=== PATIENT | female | born 1985 | race Two or more races ===

== ENCOUNTER 2017-05-06 19:25 | Emergency (ER) | payer SELFPAY ==
[~2017-05-06] VITALS: Ht 167.6 cm; Wt 113.4 kg
[2017-05-06 20:03] VITALS: BP 150/84
[2017-05-06 20:27] LABS: BILIRUBIN,URINE NEGATIVE (NEG); GLUCOSE,URINE NEGATIVE (NEG); NITRITE,URINE NEGATIVE (NEG); PH,URINE 7.5; PROTEIN,URINE NEGATIVE (NEG-TRACE); UROBILINOGEN,URINE 0.2 mg/dL (0.2 mg/dL)
[2017-05-06 20:33] LABS: BACTERIA,URINE FEW /HPF (0-FEW); RBC,URINE OCC /HPF (0-2); SQUAMOUS EPITHELIAL CELL,UR MOD /LPF; WBC,URINE 0 /HPF (0-4)
[2017-05-06 20:48] LABS: BASO # 0.1 x10^3/uL (0.0-0.2); BASO % 1 % (0-3); EOS % 2 % (0-3); HEMATOCRIT 38.4 % (36.0-47.0); HEMOGLOBIN 12.8 g/dL (12.0-15.5); LYMPH # 4.3 x10^3/uL (1.0-4.8); LYMPH % 37 % (24-48); MEAN CORPUSCULAR HEMOGLOBIN 28 pg (25-35); MEAN CORPUSCULAR HGB CONC 33 g/dL (31-37); MEAN CORPUSCULAR VOLUME 85 fL (79-100); MONO % 6 % (0-9); NEUT % 54 % (31-73); PLATELET COUNT 291 x10^3/uL (140-400); RED BLOOD COUNT 4.55 x10^6/uL (3.50-5.40); RED CELL DISTRIBUTION WIDTH 14.4 % (11.5-14.5); WHITE BLOOD COUNT 11.8 x10^3/uL (4.0-11.0)
[2017-05-06 21:01] LABS: CALCIUM 8.9 mg/dL (8.5-10.1); CREATININE 0.8 mg/dL (0.6-1.0); GFR 83.7
[2017-05-06 21:06] LABS: ALBUMIN 3.4 g/dL (3.4-5.0); ALBUMIN/GLOBULIN RATIO 0.7 (1.0-1.7); TOTAL BILIRUBIN 0.2 mg/dL (0.2-1.0); TOTAL PROTEIN 8.3 g/dL (6.4-8.2)
--- NOTE | 2017-05-06 21:17 | PHYS DOC ---
Past Medical History Past Medical History: No Pertinent History, Diabetes-Type II, Hypertension Past Surgical History: Alcohol Use: None Drug Use: None Adult General Chief Complaint Chief Complaint: ABDOMINAL PAIN HPI HPI 31-year-old female who presents the emergency department who primarily speaks Albanian. Official blue line operations lead used. Patient reports having right-sided upper abdominal pain and right-sided flank pain intermittently that is sharp moderate pain it is nonradiating and without alleviating factors. She has a chronic wound and rash on both of her legs which she has been prescribed a cream. Denies nausea vomiting or chills. She denies fever. Review of systems is negative for nausea vomiting diarrhea or blood in stools. She denies chest pain or shortness of breath. All other review of systems is negative unless otherwise noted in history of present illness. ED course: 31-year-old female presenting with epigastric to right upper quadrant abdominal pain in conjunction with right-sided flank pain. Upon arrival the patient is afebrile with mild tachycardia. Mild elevation in blood pressure. Pertinent physical exam findings show a nontender gallbladder. Mild right CVA tenderness present. No rebound tenderness or guarding. Blood work obtained along with urinalysis and CT the abdomen pelvis. Blood work unremarkable. Urinalysis has blood without signs of infection. CT the abdomen pelvis suggestive of nephrolithiasis. The patient was then discharged home in stable condition to follow up with their primary care physician over the next 2- 3 days. They were to return if their symptoms worsened or if they were concerned for any reason. [id number] discharge instructions and return precautions were given. Patient's questions were answered to their satisfaction. Patient is comfortable plan. Review of Systems Review of Systems SEE ABOVE. Allergies Allergies Allergies Coded Allergies Type Severity Reaction Last Updated Verified No Known Drug Allergies 05/06/17 No Physical Exam Physical Exam SEE ABOVE Constitutional: Well developed, well nourished, no acute distress, non-toxic appearance. HENT: Normocephalic, atraumatic, bilateral external ears normal, oropharynx moist, no oral exudates, nose normal. [] Eyes: PERRLA, EOMI, conjunctiva normal, no discharge. [] Neck: Normal range of motion, no tenderness, supple, no stridor. Cardiovascular:Heart rate regular rhythm, no murmur Lungs & Thorax: Bilateral breath sounds clear to auscultation [] Abdomen: Bowel sounds normal, soft, no tenderness, no masses, no pulsatile masses. Skin: Warm, dry, no erythema, no rash. [] Back: Mild right-sided CVA tenderness. No midline tenderness. Extremities: No tenderness, no cyanosis, no clubbing, ROM intact, no edema. [] Neurologic: Alert and oriented X 3, normal motor function, normal sensory function, no focal deficits noted. Psychologic: Affect normal, judgement normal, mood normal. [] Current Patient Data Vital Signs Vital Signs Date Time Temp Pulse Resp B/P (MAP) Pulse Ox O2 Delivery O2 Flow Rate FiO2 05/06/17 20:03 98.3 96 20 150/84 (106) 97 Room Air 98.3 Lab Values Laboratory Tests Test 05/06/17 20:01 05/06/17 20:17 05/06/17 20:40 Urine Collection Type Unknown Urine Color Yellow Urine Clarity Clear Urine pH 7.5 Urine Specific [place] 1.020 Urine Protein Negative mg/dL (NEG-TRACE) Urine Glucose (UA) Negative mg/dL (NEG) Urine Ketones (Stick) Negative mg/dL (NEG) Urine Blood Moderate (NEG) Urine Nitrite Negative (NEG) Urine Bilirubin Negative (NEG) Urine Urobilinogen Dipstick 0.2 mg/dL (0.2 mg/dL) Urine Leukocyte Esterase Negative (NEG) Urine RBC Occ /HPF (0-2) Urine WBC 0 /HPF (0-4) Urine Squamous Epithelial Cells Mod /LPF Urine Bacteria Few /HPF (0-FEW) POC Urine HCG, Qualitative Hcg negative (Negative) White Blood Count 11.8 x10^3/uL (4.0-11.0) H Red Blood Count 4.55 x10^6/uL (3.50-5.40) Hemoglobin 12.8 g/dL (12.0-15.5) Hematocrit 38.4 % (36.0-47.0) Mean Corpuscular Volume 85 fL (79-100) Mean Corpuscular Hemoglobin 28 pg (25-35) Mean Corpuscular Hemoglobin Concent 33 g/dL (31-37) Red Cell Distribution Width 14.4 % (11.5-14.5) Platelet Count 291 x10^3/uL (140-400) Neutrophils (%) (Auto) 54 % (31-73) Lymphocytes (%) (Auto) 37 % (24-48) Monocytes (%) (Auto) 6 % (0-9) Eosinophils (%) (Auto) 2 % (0-3) Basophils (%) (Auto) 1 % (0-3) Neutrophils # (Auto) 6.3 x10^3uL (1.8-7.7) Lymphocytes # (Auto) 4.3 x10^3/uL (1.0-4.8) Monocytes # (Auto) 0.8 x10^3/uL (0.0-1.1) Eosinophils # (Auto) 0.2 x10^3/uL (0.0-0.7) Basophils # (Auto) 0.1 x10^3/uL (0.0-0.2) Sodium Level 139 mmol/L (136-145) Potassium Level 4.0 mmol/L (3.5-5.1) Chloride Level 104 mmol/L (98-107) Carbon Dioxide Level 26 mmol/L (21-32) Anion Gap 9 (6-14) Blood Urea Nitrogen 16 mg/dL (7-20) Creatinine 0.8 mg/dL (0.6-1.0) Estimated GFR (Cockcroft-Gault) 83.7 BUN/Creatinine Ratio 20 (6-20) Glucose Level 98 mg/dL (70-99) Calcium Level 8.9 mg/dL (8.5-10.1) Total Bilirubin 0.2 mg/dL (0.2-1.0) Aspartate Amino Transferase (AST) 14 U/L (15-37) L Alanine Aminotransferase (ALT) 21 U/L (14-59) Alkaline Phosphatase 60 U/L (46-116) Total Protein 8.3 g/dL (6.4-8.2) H Albumin 3.4 g/dL (3.4-5.0) Albumin/Globulin Ratio 0.7 (1.0-1.7) L Lipase 112 U/L (73-393) Laboratory Tests 05/06/17 20:40 Laboratory Tests 05/06/17 20:40 EKG EKG [] Radiology/Procedures Radiology/Procedures [] Course & Med Decision Making Course & Med Decision Making Pertinent Labs and Imaging studies reviewed. (See chart for details) [] Dragon Disclaimer Dragon Disclaimer This electronic medical record was generated, in whole or in part, using a voice recognition dictation system. Departure Departure Impression: Primary Impression: Right flank pain Additional Impression: Nephrolithiasis Disposition: 01 HOME, SELF-CARE Condition: STABLE Referrals: NO PCP (PCP) Patient Instructions: Flank Pain, [id number], Kidney Stones Additional Instructions: Thank you for allowing us to participate in your care today. Followup with your primary care physician in 3 days if your symptoms do not improve. Call your Primary Doctor tomorrow and inform them of your visit today. If you do not have a primary care provider you can ask for a list of our primary care providers. Return to the emergency department you have any new or concerning findings. This should be evaluated by the primary care physician and any necessary consulting services for continued management within a few days after discharge. Return to emergency room if you have any new or concerning symptoms including but not limited to fever, chills, nausea, vomiting, intractable pain, any new rashes, chest pain, shortness of air, uncontrolled bleeding, difficulty breathing, and/or vision loss. Problem Qualifiers CYNTHIA CHUN MD May 06, 2017 21:17
--- NOTE | 2017-05-06 21:17 | RAD ---
CT scan of the abdomen and pelvis without contrast 05/06/2017 CLINICAL HISTORY: Right flank pain. TECHNIQUE: Unenhanced, contiguous, 2 mm axial sections were obtained through the abdomen and pelvis. FINDINGS: Images from the study are limited due to the patient's very large body habitus. Images through the lung bases demonstrate minimal dependent subsegmental atelectasis bilaterally. The liver parenchyma has a decreased attenuation consistent with mild fatty infiltration. The spleen, pancreas and adrenal glands are within normal limits. A 3 mm nonobstructing calculus is seen involving the midpole of the right kidney. No focal abnormality of the left kidney is seen. There is no evidence of obstruction of either collecting system. The abdominal aorta tapers normally. The gallbladder is slightly contracted. No free fluid or free air is seen within the abdomen. Air and stool is seen throughout the colon. The appendix is well-visualized and is within normal limits. Images through the pelvis demonstrate the urinary bladder to be contracted. No free fluid is seen. Minimal S-shaped curvature of the thoracolumbar spine is seen. Degenerative changes are seen involving the lower thoracic and throughout the lumbar spine. IMPRESSION: 1. 3 mm nonobstructing right renal calculus. No ureteral calculus is seen. There is no evidence of obstruction of either collecting system. 2. No acute abnormality is seen involving the abdomen and pelvis. Electronically signed by: Uri Soares MD (05/06/2017 9:14 PM) [facility]
[2017-05-06] MEDS ORDERED: HYDR-2758 PO (22:15)
[2017-05-06] MEDS ORDERED: ONDA4TAB10 SL (22:15)
== END 2017-05-06 22:24 | disposition home or self-care (01) ==
LOC: ER 19:25
DX: N20.0 Calculus of kidney (principal); E11.9 Type 2 diabetes mellitus without complications; I10 Essential (primary) hypertension
CPT/HCPCS: 36415; 74176; 80053; 81001; 81025; 83690; 85025; 99285-25

== ENCOUNTER 2017-12-10 22:18 | Emergency (ER) | payer OTHER ==
[2017-12-10 23:44] LABS: ADD MAN DIFF? NO
[2017-12-10 23:47] LABS: BASO # 0.1 x10^3/uL (0.0-0.2); BASO % 1 % (0-3); BILIRUBIN,URINE NEGATIVE (NEG); CLARITY,URINE CLEAR; COLOR,URINE YELLOW; EOS # 0.2 x10^3/uL (0.0-0.7); EOS % 3 % (0-3); GLUCOSE,URINE NEGATIVE (NEG); HEMATOCRIT 37.5 % (36.0-47.0); HEMOGLOBIN 12.7 g/dL (12.0-15.5); LYMPH # 3.5 x10^3/uL (1.0-4.8); LYMPH % 42 % (24-48); MEAN CORPUSCULAR HEMOGLOBIN 28 pg (25-35); MEAN CORPUSCULAR HGB CONC 34 g/dL (31-37); MEAN CORPUSCULAR VOLUME 84 fL (79-100); MONO # 0.5 x10^3/uL (0.0-1.1); MONO % 6 % (0-9); NEUT # 4.1 x10^3uL (1.8-7.7); NEUT % 49 % (31-73); NITRITE,URINE NEGATIVE (NEG); PLATELET COUNT 274 x10^3/uL (140-400); PROTEIN,URINE NEGATIVE (NEG-TRACE); RED BLOOD COUNT 4.47 x10^6/uL (3.50-5.40); RED CELL DISTRIBUTION WIDTH 14.4 % (11.5-14.5); WHITE BLOOD COUNT 8.3 x10^3/uL (4.0-11.0)
[2017-12-10 23:54] LABS: ANION GAP 8 (6-14); BACTERIA,URINE MANY /HPF (0-FEW); BLOOD UREA NITROGEN 10 mg/dL (7-20); BUN/CREATININE RATIO 17 (6-20); CALCIUM 8.2 mg/dL (8.5-10.1); CARBON DIOXIDE 27 mmol/L (21-32); CHLORIDE 105 mmol/L (98-107); CREATININE 0.6 mg/dL (0.6-1.0); GFR 115.9; GLUCOSE 131 mg/dL (70-99); POTASSIUM 3.6 mmol/L (3.5-5.1); RBC,URINE RARE /HPF (0-2); SODIUM 140 mmol/L (136-145); SQUAMOUS EPITHELIAL CELL,UR MANY /LPF; WBC,URINE OCC /HPF (0-4)
[2017-12-11] LABS: ALBUMIN 3.2 g/dL (3.4-5.0); ALBUMIN/GLOBULIN RATIO 0.8 (1.0-1.7); ALK PHOS 56 U/L (46-116); ALT (SGPT) 18 U/L (14-59); AST (SGOT) 12 U/L (15-37); LIPASE 125 U/L (73-393); TOTAL BILIRUBIN 0.2 mg/dL (0.2-1.0); TOTAL PROTEIN 7.3 g/dL (6.4-8.2)
[2017-12-11 00:26] LABS: NEG OBC UR NEG; POS OBC UR POS; U PREG PATIENT NEGATIVE (NEG)
[2017-12-11] MEDS: MORPHINE SULFATE 4 MG/ML DISP.SYRIN. IV (01:18)
[2017-12-11] MEDS: KETOROLAC 30 MG/ML INJ. IV (01:59)
== END 2017-12-11 02:03 | disposition home or self-care (01) ==
LOC: ER 12-11 02:03
DX: N20.0 Calculus of kidney (principal); E11.9 Type 2 diabetes mellitus without complications; I10 Essential (primary) hypertension; Z88.2 Allergy status to sulfonamides
CPT/HCPCS: 36415; 74176; 80053; 81001; 81025; 83690; 85025; 87086; 96374; 96375; 99285-25; J1885; J2270

== ENCOUNTER 2018-05-12 11:07 | Emergency (ER) | payer OTHER ==
[~2018-05-12] VITALS: Ht 152.4 cm; Wt 122.5 kg
[~2018-05-12 11:07] MED LIST: HYDR-2761 PO; HYDR-3164 PO; IBUP-1060 PO; ONDA4TAB10 SL; TAMS0.4C97 PO
--- NOTE | 2018-05-12 11:41 | PHYS DOC ---
Past Medical History Past Medical History: No Pertinent History, Diabetes-Type II, Hypertension Past Surgical History: Smoking: Cigarettes (The patient is a nonsmoker.) Alcohol Use: None Drug Use: None Adult General Chief Complaint Chief Complaint: ASTHMA HPI HPI Patient presents to the emergency department for evaluation. She is a 32-year- old female, who states that for the past 5 days, she has had nasal congestion and a cough. She has had fever as well for the past 3 days, but not today. She has not had any vomiting and denies any pain. She is reportedly having shortness of breath. She states that she had asthma as a child but has not had any asthma problems for quite some time. She is not currently treated for asthma. She is, however, treated for hypertension. She states that she is uncertain if she is , as she has missed her menstrual cycle this past month. Review of Systems Review of Systems Constitutional: Denies lethargy or chills [] Eyes: Denies change in visual acuity, redness, or eye pain [] HENT: Reports nasal congestion and sore throat [] Respiratory: Reports cough and shortness of breath. Cough nonproductive[] Cardiovascular: The patient denies any shortness of breath, chest pain, palpitations, or orthopnea [] GI: Denies abdominal pain, nausea, vomiting, bloody stools or diarrhea [] : Denies dysuria or hematuria [] Musculoskeletal: Denies back pain or joint pain [] Integument: Denies rash or skin lesions [] Neurologic: Denies headache, focal weakness or sensory changes [] Endocrine: Denies polyuria or polydipsia [] All other systems were reviewed and found to be within normal limits, except as documented in this note. Current Medications Current Medications Current Medications Medications (Trade) Dose Ordered Sig/Tonia Start Time Stop Time Status Last Admin Dose Admin Albuterol/ Ipratropium (Duoneb) 3 ml 1X ONCE 05/12/18 11:45 05/12/18 11:46 DC 05/12/18 11:58 3 ML Ceftriaxone Sodium 50 ml @ 100 mls/hr 1X ONCE 05/12/18 13:00 05/12/18 13:29 DC 05/12/18 13:59 100 MLS/HR Lorazepam (Ativan) 1 mg 1X ONCE 05/12/18 12:00 05/12/18 12:01 DC 05/12/18 12:06 1 MG Sodium Chloride 1,000 ml @ 1,000 mls/hr Q1H 05/12/18 11:45 05/12/18 12:44 DC 05/12/18 12:06 1,000 MLS/HR Allergies Allergies Allergies Coded Allergies Type Severity Reaction Last Updated Verified vancomycin Allergy Unknown 12/10/17 Yes Physical Exam Physical Exam PHYSICAL EXAM: CONSTITUTIONAL: Well developed, well nourished HEAD: normocephalic, atraumatic EENT: PERRL, EOMI. Conjunctivae normal color, sclerae non-icteric; moist mucous membranes. Nasal congestion is present. There is very mild pharyngeal erythema without any exudate or uvular deviation or tonsillar enlargement. There is no peritonsillar edema. The tympanic membranes are normal bilaterally. NECK: Supple, non-tender; no meningismus. LUNGS: The patient is hyperventilating. Lungs are mostly clear with some transmitted upper airway noise. There is no wheezing, rales, or rhonchi. HEART: Regular rate and rhythm, no murmur CHEST: No deformity; non-tender ABDOMEN: The abdomen is soft, and non-tender, no masses or bruits. EXTREM: Normal ROM; no deformity, no calf tenderness. Normal pulses palpable in all extremities. There is no pedal edema. SKIN: No rash; no diaphoresis NEURO: Alert; normal speech and cognition; CN's grossly intact; strength grossly intact without focal deficit. BACK: No CVA TTP. PSYCHIATRIC: The patient exhibits a moderately anxious affect. Current Patient Data Vital Signs Vital Signs Date Time Temp Pulse Resp B/P (MAP) Pulse Ox O2 Delivery O2 Flow Rate FiO2 05/12/18 11:25 99.8 108 24 154/85 (108) 99 Room Air 99.8 Lab Values Laboratory Tests Test 05/12/18 11:50 05/12/18 12:00 POC Urine HCG, Qualitative Hcg negative (Negative) Influenza Type A Antigen Negative (NEGATIVE) Influenza Type B Antigen Negative (NEGATIVE) Group A Streptococcus Rapid Negative (NEGATIVE) White Blood Count 15.0 x10^3/uL (4.0-11.0) H Red Blood Count 4.56 x10^6/uL (3.50-5.40) Hemoglobin 13.1 g/dL (12.0-15.5) Hematocrit 38.3 % (36.0-47.0) Mean Corpuscular Volume 84 fL (79-100) Mean Corpuscular Hemoglobin 29 pg (25-35) Mean Corpuscular Hemoglobin Concent 34 g/dL (31-37) Red Cell Distribution Width 14.3 % (11.5-14.5) Platelet Count 251 x10^3/uL (140-400) Neutrophils (%) (Auto) 81 % (31-73) H Lymphocytes (%) (Auto) 13 % (24-48) L Monocytes (%) (Auto) 5 % (0-9) Eosinophils (%) (Auto) 1 % (0-3) Basophils (%) (Auto) 1 % (0-3) Neutrophils # (Auto) 12.1 x10^3uL (1.8-7.7) H Lymphocytes # (Auto) 1.9 x10^3/uL (1.0-4.8) Monocytes # (Auto) 0.8 x10^3/uL (0.0-1.1) Eosinophils # (Auto) 0.1 x10^3/uL (0.0-0.7) Basophils # (Auto) 0.1 x10^3/uL (0.0-0.2) O2 Saturation 96 % (92-99) Arterial Blood pH 7.49 (7.35-7.45) H Arterial Blood pCO2 at Patient Temp 29 mmHg (35-46) L Arterial Blood pO2 at Patient Temp 73 mmHg (85-108) L Arterial Blood HCO3 22 mmol/L (21-28) Arterial Blood Base Excess 0 mmol/L (-3-3) Oxyhemoglobin 94.6 % Methemoglobin 0.4 % (0.0-1.9) Carbon Monoxide, Quantitative 0.5 % (0.0-1.9) Sodium Level 135 mmol/L (136-145) L Potassium Level 4.2 mmol/L (3.5-5.1) Chloride Level 99 mmol/L (98-107) Carbon Dioxide Level 26 mmol/L (21-32) Anion Gap 10 (6-14) Blood Urea Nitrogen 10 mg/dL (7-20) Creatinine 0.7 mg/dL (0.6-1.0) Estimated GFR (Cockcroft-Gault) 97.0 BUN/Creatinine Ratio 14 (6-20) Glucose Level 87 mg/dL (70-99) Lactic Acid Level 1.5 mmol/L (0.4-2.0) Calcium Level 8.9 mg/dL (8.5-10.1) Total Bilirubin 0.4 mg/dL (0.2-1.0) Aspartate Amino Transferase (AST) 19 U/L (15-37) Alanine Aminotransferase (ALT) 30 U/L (14-59) Alkaline Phosphatase 74 U/L (46-116) CP-Wto-H-Type Natriuretic Peptide 44 pg/mL (0-124) Total Protein 8.8 g/dL (6.4-8.2) H Albumin 3.5 g/dL (3.4-5.0) Albumin/Globulin Ratio 0.7 (1.0-1.7) L Salicylates Level < 2.8 mg/dL (2.8-20.0) L Salicylate Last Dose Date Unknown Salicylate Last Dose Time Unknown Laboratory Tests 05/12/18 12:00 Laboratory Tests 05/12/18 12:00 EKG EKG [Probable normal sinus rhythm a rate of 105 beats for minute, normal axis, normal intervals, nonspecific ST/T changes. There is significant motion artifact likely related to patient's hyperventilation. EKG will attempt to be repeated.] Repeat EKG is slightly improved, shows normal sinus rhythm a rate of 116 bpm, normal axis, normal intervals, there are still motion artifact there are no acute ischemic ST/T changes. Radiology/Procedures Radiology/Procedures [PROCEDURE: CHEST PA & LATERAL CHEST PA LATERAL History: COUGH AND SHORTNESS OF BREATH, HX OF ASTHMA Comparison: None. Findings: The cardiomediastinal silhouette is normal. Pulmonary vasculature is normal. The lungs are clear. No pleural effusion or pneumothorax is seen. There is no acute bone abnormality. IMPRESSION: No acute cardiopulmonary process. ] Course & Med Decision Making Course & Med Decision Making Pertinent Labs and Imaging studies reviewed. (See chart for details) [2:10 PM: The patient's condition remains stable. She still appears very anxious. She still has some nasal congestion, and questionable upper respiratory noises for his rhonchi in her lung bases bilaterally. Her oxygen saturation is normal. My interpretation of the patient's x-ray does reveal some questionable patchy infiltrates in the bases bilaterally but radiology report is negative. Because of the leukocytosis and patient's condition, I do have some concern for the possibility of a bacterial bronchitis/pneumonia and the patient will thus be treated with antibiotics. I discussed the importance of close follow-up with the patient, the use of [id number] decongestants and cough medications, and return precautions.] Dragon Disclaimer Dragon Disclaimer This electronic medical record was generated, in whole or in part, using a voice recognition dictation system. Departure Departure Impression: Primary Impression: Acute bronchitis Additional Impression: Upper respiratory infection Disposition: HOME, SELF-CARE Condition: STABLE Patient Instructions: Acute Bronchitis Additional Instructions: Continue using the [id number] cough medications, and decongestants, such as Sudafed, may help improve your nasal congestion. Return to medical care for any new, or worsening symptoms, development of recurrent fever, increasing difficulty breathing, or any other new or concerning symptoms. Use the provided list of primary care providers to help establish follow-up care with a primary care provider. Scripts Azithromycin (AZITHROMYCIN TABLET) 250 Mg Tablet 1 PKG PO UD, #6 TAB Prov: YOGESH SEE MD 05/12/18 Problem Qualifiers YOGESH SEE MD May 12, 2018 11:41
[2018-05-12] MEDS ORDERED: IV NORMAL SALINE 1000ML BAG 1,000 ML IV SCH (11:45)
[2018-05-12] MEDS ORDERED: IPRATRPIUM/ALBUTEROL 0.5/2.5MG 3 ML NEBU. NEB ONE (11:45)
[2018-05-12 12:07] LABS: BASE EXCESS COOX 0 mmol/L (-3-3); HCO3 COOX 22 mmol/L (21-28); METHEMOGLOBIN 0.4 % (0.0-1.9); OXYHEMOGLOBIN 94.6 %; PCO2 COOX 29 mmHg (35-46); PO2 COOX 73 mmHg (85-108); SAT O2 COOX 96 % (92-99)
[2018-05-12 12:20] LABS: BASO # 0.1 x10^3/uL (0.0-0.2); BASO % 1 % (0-3); EOS # 0.1 x10^3/uL (0.0-0.7); EOS % 1 % (0-3); HEMATOCRIT 38.3 % (36.0-47.0); HEMOGLOBIN 13.1 g/dL (12.0-15.5); LYMPH # 1.9 x10^3/uL (1.0-4.8); LYMPH % 13 % (24-48); MEAN CORPUSCULAR HEMOGLOBIN 29 pg (25-35); MEAN CORPUSCULAR HGB CONC 34 g/dL (31-37); MEAN CORPUSCULAR VOLUME 84 fL (79-100); MONO # 0.8 x10^3/uL (0.0-1.1); MONO % 5 % (0-9); NEUT # 12.1 x10^3uL (1.8-7.7); NEUT % 81 % (31-73); PLATELET COUNT 251 x10^3/uL (140-400); RED BLOOD COUNT 4.56 x10^6/uL (3.50-5.40); RED CELL DISTRIBUTION WIDTH 14.3 % (11.5-14.5)
--- NOTE | 2018-05-12 12:21 | EKG ---
[facility] [address] [place] [address] Test Date: 2018-05-12 Test Time: 11:46:23 Pat Name: BEST CHEW Department: Room: Gender: F Lap Hand Tool: : 1985 Requested By: YOGESH SEE Order Number: [id number] Reading MD: Geovanny Robbins Measurements Intervals [place] Rate: 104 P: -70 AK: 144 QRS: 51 QRSD: 92 T: 24 QT: 382 QTc: 509 Interpretive Statements SINUS TACHYCARDIA ST & T ABNORMALITY, CONSIDER RECENT INFERIOR MYOCARDIAL OR PERICARDIAL DAMAGE ABNORMAL ECG No previous ECG available for comparison Electronically Signed On 05-13-2018 9:40:45 PROJECT BUILDER by Geovanny Robbins
[2018-05-12 12:29] LABS: INFLUENZA A PATIENT NEGATIVE (NEGATIVE); INFLUENZA B PATIENT NEGATIVE (NEGATIVE)
[2018-05-12 12:37] LABS: CALCIUM 8.9 mg/dL (8.5-10.1); CREATININE 0.7 mg/dL (0.6-1.0); POTASSIUM 4.2 mmol/L (3.5-5.1)
[2018-05-12 12:40] LABS: SALIC < 2.8 mg/dL (2.8-20.0)
[2018-05-12 12:43] LABS: ALBUMIN 3.5 g/dL (3.4-5.0); ALBUMIN/GLOBULIN RATIO 0.7 (1.0-1.7); TOTAL BILIRUBIN 0.4 mg/dL (0.2-1.0); TOTAL PROTEIN 8.8 g/dL (6.4-8.2)
--- NOTE | 2018-05-12 12:51 | RAD ---
CHEST PA LATERAL History: COUGH AND SHORTNESS OF BREATH, HX OF ASTHMA Comparison: None. Findings: The cardiomediastinal silhouette is normal. Pulmonary vasculature is normal. The lungs are clear. No pleural effusion or pneumothorax is seen. There is no acute bone abnormality. IMPRESSION: No acute cardiopulmonary process. Electronically signed by: Los Camejo MD (05/12/2018 12:48 PM) [id number]
[2018-05-12 13:30] VITALS: BP 142/82
[2018-05-12] MEDS ORDERED: AZIT250T6 PO (14:14)
[2018-05-12 14:23] LABS: BILIRUBIN,URINE NEGATIVE (NEG); CLARITY,URINE CLEAR; COLOR,URINE YELLOW; NITRITE,URINE NEGATIVE (NEG); PROTEIN,URINE NEGATIVE (NEG-TRACE); UROBILINOGEN,URINE 0.2 mg/dL (0.2 mg/dL)
[2018-05-12 14:28] LABS: BACTERIA,URINE MODERATE /HPF (0-FEW); RBC,URINE 0 /HPF (0-2); SQUAMOUS EPITHELIAL CELL,UR FEW /LPF; WBC,URINE RARE /HPF (0-4)
--- NOTE | 2018-05-12 15:33 | EKG ---
[facility] [address] [place] [address] Test Date: 2018-05-12 Test Time: 13:10:36 Pat Name: BEST CHEW Department: Room: Gender: F Continuous Improvement Coach: Julianne : 1985 Requested By: YOGESH SEE Order Number: [id number] Reading MD: Geovanny Robbins Measurements Intervals Marissa Rate: 116 P: 42 WI: 144 QRS: 22 QRSD: 78 T: 111 QT: 308 QTc: 434 Interpretive Statements SINUS TACHYCARDIA NONSPECIFIC ST-T WAVE CHANGES. Electronically Signed On 05-13-2018 9:43:05 LEATHER POLISHER by Geovanny Robbins
== END 2018-05-12 14:40 | disposition home or self-care (01) ==
LOC: ER 11:07
DX: J20.9 Acute bronchitis, unspecified (principal); J06.9 Acute upper respiratory infection, unspecified; E11.9 Type 2 diabetes mellitus without complications; I10 Essential (primary) hypertension; J45.909 Unspecified asthma, uncomplicated; Z88.1 Allergy status to other antibiotic agents
CPT/HCPCS: 36415; 36600; 71046; 80053; 80329; 81001; 81025; 82805; 83605; 83880; 85025; 87070; 87086; 87804; 87880; 93005; 94640; 96374; 96375; 99284; J0690; J2060; J7030; J7620

== ENCOUNTER 2018-07-19 11:09 | Emergency (ER) | payer SELFPAY ==
[~2018-07-19] VITALS: Ht 152.4 cm; Wt 122.5 kg
[~2018-07-19 11:09] MED LIST changes: +ALBU2.5V8 INH; +AZIT250T6 PO; +BENZ100C PO; +PRED50TA PO
[2018-07-19 11:37] VITALS: BP 154/81
[2018-07-19] MEDS ORDERED: ACETAMINOPHEN 500 MG TABLET PO ONE (12:15)
[2018-07-19 12:17] LABS: INFLUENZA A PATIENT NEGATIVE (NEGATIVE); INFLUENZA B PATIENT NEGATIVE (NEGATIVE)
[2018-07-19] MEDS ORDERED: ONDANSETRON ODT 4 MG TAB.RAPDIS. PO ONE (12:30)
--- NOTE | 2018-07-19 12:37 | PHYS DOC ---
Past Medical History Past Medical History: Asthma, Diabetes-Type II, Hypertension (LINH SAHU APRN) Past Surgical History: (LINH SAHU APRN) Alcohol Use: None Drug Use: None (LINH SAHU APRN) Adult General Chief Complaint Chief Complaint: SORE THROAT HPI HPI Patient is a 33 year old female who presents to the ER with complaints of a sore throat, productive cough with clear sputum, fever, and body aches since yesterday. Family reports that pt has vomited x 4 this morning, the emesis is described as clear sputum. Pt also complains of burning with urination this morning. She denies any diarrhea, abdominal pain, or rash. (LINH SAHU APRN) Review of Systems Review of Systems Constitutional: Reports fever and body aches HENT: Denies nasal congestion or ear pain, reports sore throat Respiratory: denies wheezing or SOA, reports productive cough Cardiovascular: No additional information not addressed in HPI [] GI: Denies abdominal pain, or diarrhea; see HPI : See HPI Musculoskeletal: Reports body aches Integument: Denies rash or skin lesions [] Neurologic: Denies headache, focal weakness or sensory changes [] (LINH SAHU APRN) Current Medications Current Medications Current Medications Medications (Trade) Dose Ordered Sig/Tonia Start Time Stop Time Status Last Admin Dose Admin Acetaminophen (Tylenol) 1,000 mg 1X ONCE 07/19/18 12:15 07/19/18 12:16 DC 07/19/18 12:28 1,000 MG Ibuprofen (Motrin) 800 mg 1X ONCE 07/19/18 13:15 07/19/18 13:18 DC 07/19/18 13:21 800 MG Ondansetron HCl (Zofran Odt) 4 mg 1X ONCE 07/19/18 12:30 07/19/18 12:31 DC 07/19/18 12:28 4 MG (SRINIVAS PAYNE DO) Allergies Allergies Allergies Coded Allergies Type Severity Reaction Last Updated Verified vancomycin Allergy Unknown 12/10/17 Yes (SRINIVAS PAYNE DO) Physical Exam Physical Exam Constitutional: Well developed, well nourished, no acute distress, ill appearance, obese [] HENT: Normocephalic, atraumatic, bilateral external ears normal, bilateral TMs normal, 2+ edema bilateral tonsils with erythema and exudate present, oropharynx moist, nose normal. [] Eyes: PERRLA, conjunctiva injected, no discharge. [] Neck: Normal range of motion, anterior cervical lymph node enlargement and TTP, no stridor. [] Cardiovascular:Heart rate regular rhythm, no murmur [] Lungs & Thorax: Bilateral breath sounds clear to auscultation [] Skin: flushed, hot, no rash. [] Back: no CVA tenderness. [] Extremities: No cyanosis, no clubbing, ROM intact, no edema. [] Neurologic: Alert and oriented X 3, normal motor function, normal sensory function, no focal deficits noted. [] Psychologic: Affect normal, judgement normal, mood normal. [] (LINH SAHU APRN) Current Patient Data Vital Signs Vital Signs Date Time Temp Pulse Resp B/P (MAP) Pulse Ox O2 Delivery O2 Flow Rate FiO2 07/19/18 11:37 103.0 114 18 154/81 (105) 98 Room Air 103.0 (SRINIVAS PAYNE DO) Lab Values Laboratory Tests Test 07/19/18 10:46 07/19/18 11:55 07/19/18 12:25 Influenza Type A Antigen Negative (NEGATIVE) Influenza Type B Antigen Negative (NEGATIVE) Group A Streptococcus Rapid Negative (NEGATIVE) Urine Collection Type Unknown Urine Color Radha Urine Clarity Clear Urine pH 6.5 Urine Specific [place] 1.025 Urine Protein 100 mg/dL (NEG-TRACE) Urine Glucose (UA) Negative mg/dL (NEG) Urine Ketones (Stick) Trace mg/dL (NEG) Urine Blood Negative (NEG) Urine Nitrite Negative (NEG) Urine Bilirubin Small (NEG) Urine Urobilinogen Dipstick 1.0 mg/dL (0.2 mg/dL) Urine Leukocyte Esterase Negative (NEG) Urine RBC Occ /HPF (0-2) Urine WBC 1-4 /HPF (0-4) Urine Squamous Epithelial Cells Mod /LPF Urine Bacteria Few /HPF (0-FEW) Urine Mucus Mod /LPF (SRINIVAS PAYNE DO) EKG EKG [] (LINH SAHU APRN) Radiology/Procedures Radiology/Procedures [] (LINH SAHU APRN) Course & Med Decision Making Course & Med Decision Making Pertinent Labs and Imaging studies reviewed. (See chart for details) Dx: pharyngitis, uri Centor score 3, will treat for strep based on physical exam findings. UA negative, rapid strep negative, influenza testing negative. Prescription for amoxicillin written. Alternate tylenol and ibuprofen as needed for pain/fever. Follow up with PCP next week if symptoms persist, return to ER if sx worsen. Patient and her family verbalized an understanding of home care, medications, follow-up, and return to ED instructions and were in agreement with the plan of care. [] (LINH SAHU APRN) Dragon Disclaimer Dragon Disclaimer This electronic medical record was generated, in whole or in part, using a voice recognition dictation system. (LINH SAHU APRN) Departure Departure Impression: Primary Impression: URI with cough and congestion Additional Impression: Pharyngitis Disposition: HOME, SELF-CARE Condition: STABLE Referrals: NO PCP (PCP) Patient Instructions: Upper Respiratory Infection, Adult, [id number], Viral and Bacterial Pharyngitis, [id number] Additional Instructions: Fill prescription(s) and use as directed. Recommend use of a Cool mist humidifier in room at bedtime. Alternate Tylenol or ibuprofen as needed for pain /fever. Increase clear fluids. Avoid airway triggers such as smoke, fragrance, dust, and pollen. May take ecak-tjo-jrscumn cough suppressants as needed. Follow -up with your primary care doctor symptoms persist, return to the ER symptoms worsen. Scripts Amoxicillin (AMOXICILLIN) 500 Mg Capsule 1 CAP PO BID for 10 Days, #20 CAP 0 Refills Prov: LINH SAHU APRN 07/19/18 Attending Signature Attending Signature I have reviewed the PA/ASSET COORDINATOR's note and plan of care. I was available for consultation as needed during the patient's visit in the emergency department. I agree with the clinical impression, plan, and disposition. (SRINIVAS PAYNE DO) Problem Qualifiers Additional Impression: Pharyngitis Pharyngitis/tonsillitis etiology: unspecified etiology Qualified Codes: J02.9 - Acute pharyngitis, unspecified LINH SAHU APRN Jul 19, 2018 12:37 SRINIVAS PAYNE DO Jul 19, 2018 15:52
[2018-07-19 12:45] LABS: BILIRUBIN,URINE SMALL (NEG); CLARITY,URINE CLEAR; COLOR,URINE AMBER; NITRITE,URINE NEGATIVE (NEG); PH,URINE 6.5; PROTEIN,URINE 100 mg/dL (NEG-TRACE)
[2018-07-19 13:05] LABS: BACTERIA,URINE FEW /HPF (0-FEW); RBC,URINE OCC /HPF (0-2); SQUAMOUS EPITHELIAL CELL,UR MOD /LPF
[2018-07-19] MEDS ORDERED: AMOX500C PO (13:13)
[2018-07-19] MEDS ORDERED: IBUPROFEN 400 MG TABLET. PO ONE (13:15)
== END 2018-07-19 13:24 | disposition home or self-care (01) ==
LOC: ER 11:09
DX: J02.9 Acute pharyngitis, unspecified (principal); M79.18 Myalgia, other site; R11.10 Vomiting, unspecified; R30.0 Dysuria; I10 Essential (primary) hypertension; J45.909 Unspecified asthma, uncomplicated; E11.9 Type 2 diabetes mellitus without complications; Z98.890 Other specified postprocedural states; Z88.1 Allergy status to other antibiotic agents
CPT/HCPCS: 81001; 87804; 87880; 99284; Q0162

== ENCOUNTER 2019-05-15 15:13 | Emergency (ER) | payer OTHER ==
[~2019-05-15] VITALS: Ht 152.4 cm; Wt 108.9 kg
[~2019-05-15 15:13] MED LIST changes: +AMOX500C PO
[2019-05-15 15:54] LABS: BILIRUBIN,URINE NEGATIVE (NEG); CLARITY,URINE CLEAR; COLOR,URINE YELLOW; NITRITE,URINE NEGATIVE (NEG); PH,URINE 6.5; PROTEIN,URINE NEGATIVE (NEG-TRACE); UROBILINOGEN,URINE 0.2 mg/dL (0.2 mg/dL)
[2019-05-15 15:57] LABS: U PREG PATIENT NEGATIVE (NEG)
[2019-05-15 16:00] VITALS: BP 113/60
[2019-05-15 16:01] LABS: BACTERIA,URINE MANY /HPF (0-FEW); RBC,URINE 0 /HPF (0-2); SQUAMOUS EPITHELIAL CELL,UR MANY /LPF; WBC,URINE OCC /HPF (0-4)
[2019-05-15] MEDS ORDERED: IV NORMAL SALINE 1000ML BAG 1,000 ML IV ONE (16:15)
[2019-05-15] MEDS ORDERED: KETOROLAC 15 MG/ML VIAL. IV ONE (16:15)
--- NOTE | 2019-05-15 16:16 | PHYS DOC ---
Past Medical History Past Medical History: Asthma, Diabetes-Type II, Hypertension Past Surgical History: Alcohol Use: None Drug Use: None Adult General Chief Complaint Chief Complaint: FLANK PAIN HPI HPI Patient is a 33 year old female who presents to the emergency department with complaints of bilateral lower back pain, and right flank/lower abdominal pain for the last 2-3 days. Patient denies any dysuria, hematuria, difficulty voiding, irregular vaginal discharge, vaginal odor, vaginal itching, or vaginal bleeding. She states her last menstrual period was on March 18, 2019 and denies any known . Patient also denies any fever, cough, shortness of breath, chest pain, palpitations, dizziness, headache, nausea, vomiting, diarrhea, or constipation. She currently rates her pain a 9 out of 10 on the pain scale, she denies any alleviating factors. Patient states that movement does not make the pain worse. All other ROS is neg unless otherwise noted in HPI. Review of Systems Review of Systems See Above Current Medications Current Medications Current Medications Medications (Trade) Dose Ordered Sig/[facility] Start Time Stop Time Status Last Admin Dose Admin Fentanyl Citrate (Fentanyl 2ml Vial) 50 mcg 1X ONCE 05/15/19 18:15 05/15/19 18:16 DC 05/15/19 18:20 50 MCG Info (CONTRAST GIVEN -- Rx MONITORING) 1 each PRN DAILY PRN 05/15/19 17:30 05/15/19 19:05 DC Iohexol (Omnipaque 300 Mg/ml) 75 ml 1X ONCE 05/15/19 17:30 05/15/19 17:31 DC 05/15/19 17:32 75 ML Ketorolac Tromethamine (Toradol 15mg Vial) 15 mg 1X ONCE 05/15/19 16:15 05/15/19 16:16 DC 05/15/19 16:58 15 MG Sodium Chloride 1,000 ml @ 1,000 mls/hr 1X ONCE 05/15/19 16:15 05/15/19 17:14 DC 05/15/19 16:58 1,000 MLS/HR Allergies Allergies Allergies Coded Allergies Type Severity Reaction Last Updated Verified vancomycin Allergy Unknown 12/10/17 Yes Physical Exam Physical Exam See Above Constitutional: Well developed, well nourished, no acute distress, non-toxic appearance, obese. [] HENT: Normocephalic, atraumatic, bilateral external ears normal, oropharynx moist, no oral exudates, nose normal. [] Eyes: PERRLA, EOMI, conjunctiva normal, no discharge. [] Neck: Normal range of motion, no tenderness, supple, no stridor. [] Cardiovascular:Heart rate regular rhythm, no murmur [] Lungs & Thorax: Bilateral breath sounds clear to auscultation [] Abdomen: Bowel sounds normal, soft, RLQ TTP, no rebound tenderness, no guarding, no masses, no pulsatile masses. [] Skin: Warm, dry, no erythema, no rash. [] Back: No bony tenderness, Bilateral CVA tenderness. [] Extremities: No cyanosis, ROM intact, no edema. [] Neurologic: Alert and oriented X 3, no focal deficits noted. [] Psychologic: Affect normal, judgement normal, mood normal. [] Current Patient Data Vital Signs Vital Signs Date Time Temp Pulse Resp B/P (MAP) Pulse Ox O2 Delivery O2 Flow Rate FiO2 05/15/19 18:20 16 100 Room Air 05/15/19 16:00 79 113/60 (77) 05/15/19 15:35 98.5 98.5 Lab Values Laboratory Tests Test 05/15/19 15:25 05/15/19 16:45 Urine Collection Type Unknown Urine Color Yellow Urine Clarity Clear Urine pH 6.5 Urine Specific [place] 1.025 Urine Protein Negative mg/dL (NEG-TRACE) Urine Glucose (UA) Negative mg/dL (NEG) Urine Ketones (Stick) Negative mg/dL (NEG) Urine Blood Negative (NEG) Urine Nitrite Negative (NEG) Urine Bilirubin Negative (NEG) Urine Urobilinogen Dipstick 0.2 mg/dL (0.2 mg/dL) Urine Leukocyte Esterase Negative (NEG) Urine RBC 0 /HPF (0-2) Urine WBC Occ /HPF (0-4) Urine Squamous Epithelial Cells Many /LPF Urine Bacteria Many /HPF (0-FEW) Urine Mucus Mod /LPF Urine Test Negative (NEG) White Blood Count 8.0 x10^3/uL (4.0-11.0) Red Blood Count 4.61 x10^6/uL (3.50-5.40) Hemoglobin 12.9 g/dL (12.0-15.5) Hematocrit 38.1 % (36.0-47.0) Mean Corpuscular Volume 83 fL (79-100) Mean Corpuscular Hemoglobin 28 pg (25-35) Mean Corpuscular Hemoglobin Concent 34 g/dL (31-37) Red Cell Distribution Width 14.1 % (11.5-14.5) Platelet Count 303 x10^3/uL (140-400) Neutrophils (%) (Auto) 52 % (31-73) Lymphocytes (%) (Auto) 37 % (24-48) Monocytes (%) (Auto) 7 % (0-9) Eosinophils (%) (Auto) 4 % (0-3) H Basophils (%) (Auto) 1 % (0-3) Neutrophils # (Auto) 4.1 x10^3/uL (1.8-7.7) Lymphocytes # (Auto) 3.0 x10^3/uL (1.0-4.8) Monocytes # (Auto) 0.5 x10^3/uL (0.0-1.1) Eosinophils # (Auto) 0.3 x10^3/uL (0.0-0.7) Basophils # (Auto) 0.0 x10^3/uL (0.0-0.2) Sodium Level 138 mmol/L (136-145) Potassium Level 3.8 mmol/L (3.5-5.1) Chloride Level 102 mmol/L (98-107) Carbon Dioxide Level 29 mmol/L (21-32) Anion Gap 7 (6-14) Blood Urea Nitrogen 16 mg/dL (7-20) Creatinine 0.8 mg/dL (0.6-1.0) Estimated GFR (Cockcroft-Gault) 82.6 BUN/Creatinine Ratio 20 (6-20) Glucose Level 107 mg/dL (70-99) H Calcium Level 8.6 mg/dL (8.5-10.1) Magnesium Level 1.9 mg/dL (1.8-2.4) Total Bilirubin 0.2 mg/dL (0.2-1.0) Aspartate Amino Transferase (AST) 11 U/L (15-37) L Alanine Aminotransferase (ALT) 16 U/L (14-59) Alkaline Phosphatase 50 U/L (46-116) C-Reactive Protein, Quantitative 15.9 mg/L (0-3.3) H Total Protein 7.8 g/dL (6.4-8.2) Albumin 3.4 g/dL (3.4-5.0) Albumin/Globulin Ratio 0.8 (1.0-1.7) L Laboratory Tests 05/15/19 16:45 Laboratory Tests 05/15/19 16:45 EKG EKG [] Radiology/Procedures Radiology/Procedures PROCEDURE: CT ABD PELV W/ IV CONTRST ONLY CT ABD PELV W/ IV CONTRST ONLY History: Right lower quadrant pain, right flank pain Comparison: 12/03/2017 Technique: After administration of intravenous contrast, helical CT of the abdomen and pelvis was performed from the lung bases through the ischial tuberosities. Coronal and sagittal reconstructions were obtained. 75 mL of Omnipaque 300 were used. One or more of the following dose reduction techniques were utilized: Automated exposure control (AEC), Adjustment of mA and/or kV according to patient size, Use of iterative reconstruction technique such as ASiR, CT scan done according to ALARA and image gently/image wisely Abdomen Findings: The visualized lung bases are clear. The liver measures 20 cm in craniocaudad. The liver, gallbladder, pancreas, spleen, and bilateral adrenal glands are otherwise normal. Symmetric renal enhancement. Nonobstructing right renal calculus measuring 3 mm. There is no hydronephrosis. The visualized loops of small bowel are normal. The visualized loops of large bowel are normal. There is no evidence of bowel obstruction. Appendix is normal. There is no free fluid. There is no mesenteric or retroperitoneal adenopathy. The abdominal aorta is normal in caliber. Pelvis Findings: Urinary bladder is normal. Uterus and ovaries are present. No pelvic free fluid. There is no pelvic or inguinal adenopathy. There is no acute bony abnormality. IMPRESSION: 1. No acute abdominal process. 2. Nonobstructive right renal calculus measuring 3 mm. [] Course & Med Decision Making Course & Med Decision Making Pertinent Labs and Imaging studies reviewed. (See chart for details) Patient is a 33-year-old female who presented to the emergency Department today with complaints of right flank pain and bilateral lower back pain. Her UA was unremarkable, CBC and CMP were also unremarkable. A CT of her abdomen was done due to right lower quadrant tenderness. No acute findings were revealed with the abdominal CT. The patient had a 3 mm nonobstructive renal calculi present. She was given a liter of normal saline, 4 mg Zofran, 50 mg of IV Toradol, and 50 g of IV fentanyl. Her symptoms were tolerable after these medications. The patient was instructed to take Tylenol or ibuprofen as needed for pain and follow up with her primary care doctor if symptoms persisted. Patient verbalized an understanding of home care, medications, follow-up, and return to ED instructions and was in agreement with the plan of care. [] Dragon Disclaimer Dragon Disclaimer This electronic medical record was generated, in whole or in part, using a voice recognition dictation system. Departure Departure Impression: Primary Impression: Acute right flank pain Additional Impression: Nonspecific abdominal pain Disposition: HOME, SELF-CARE Condition: STABLE Referrals: UNKNOWN PCP NAME (PCP) Patient Instructions: Abdominal Pain (Nonspecific), Flank Pain, [id number] Additional Instructions: You may take tylenol or ibuprofen as needed for pain. Follow up with you primary care doctor this week. Return to the ER if your symptoms worsen. Your CT scan revealed a 3 mm kidney stone that is in your kidney. Problem Qualifiers LINH SAHU BELT MAKER HELPER May 15, 2019 16:15
[2019-05-15 17:02] LABS: CALCIUM 8.6 mg/dL (8.5-10.1); CREATININE 0.8 mg/dL (0.6-1.0); GFR 82.6; POTASSIUM 3.8 mmol/L (3.5-5.1)
[2019-05-15 17:08] LABS: ALBUMIN 3.4 g/dL (3.4-5.0); ALBUMIN/GLOBULIN RATIO 0.8 (1.0-1.7); C-REACTIVE PROTEIN 15.9 mg/L (0-3.3); MAGNESIUM 1.9 mg/dL (1.8-2.4); TOTAL BILIRUBIN 0.2 mg/dL (0.2-1.0); TOTAL PROTEIN 7.8 g/dL (6.4-8.2)
[2019-05-15] MEDS ORDERED: IOHEXOL 300 MG/ML 100ML VIAL. IV ONE (17:30)
[2019-05-15] MEDS ORDERED: CONTRAST GIVEN. MC PRN (17:30)
--- NOTE | 2019-05-15 18:04 | RAD ---
CT ABD PELV W/ IV CONTRST ONLY History: Right lower quadrant pain, right flank pain Comparison: 12/03/2017 Technique: After administration of intravenous contrast, helical CT of the abdomen and pelvis was performed from the lung bases through the ischial tuberosities. Coronal and sagittal reconstructions were obtained. 75 mL of Omnipaque 300 were used. One or more of the following dose reduction techniques were utilized: Automated exposure control (AEC), Adjustment of mA and/or kV according to patient size, Use of iterative reconstruction technique such as ASiR, CT scan done according to ALARA and image gently/image wisely Abdomen Findings: The visualized lung bases are clear. The liver measures 20 cm in craniocaudad. The liver, gallbladder, pancreas, spleen, and bilateral adrenal glands are otherwise normal. Symmetric renal enhancement. Nonobstructing right renal calculus measuring 3 mm. There is no hydronephrosis. The visualized loops of small bowel are normal. The visualized loops of large bowel are normal. There is no evidence of bowel obstruction. Appendix is normal. There is no free fluid. There is no mesenteric or retroperitoneal adenopathy. The abdominal aorta is normal in caliber. Pelvis Findings: Urinary bladder is normal. Uterus and ovaries are present. No pelvic free fluid. There is no pelvic or inguinal adenopathy. There is no acute bony abnormality. IMPRESSION: 1. No acute abdominal process. 2. Nonobstructive right renal calculus measuring 3 mm. Electronically signed by: Yunior Jacobs MD (05/15/2019 6:01 PM) [id number]
[2019-05-15] MEDS ORDERED: fentaNYL PF VIAL 100 MCG/2 ML VIAL IV ONE (18:15)
[2019-05-15 18:16] LABS: BASO % 1 % (0-3); EOS # 0.3 x10^3/uL (0.0-0.7); EOS % 4 % (0-3); HEMATOCRIT 38.1 % (36.0-47.0); HEMOGLOBIN 12.9 g/dL (12.0-15.5); LYMPH % 37 % (24-48); MEAN CORPUSCULAR HEMOGLOBIN 28 pg (25-35); MEAN CORPUSCULAR HGB CONC 34 g/dL (31-37); MEAN CORPUSCULAR VOLUME 83 fL (79-100); MONO # 0.5 x10^3/uL (0.0-1.1); MONO % 7 % (0-9); NEUT # 4.1 x10^3/uL (1.8-7.7); NEUT % 52 % (31-73); PLATELET COUNT 303 x10^3/uL (140-400); RED BLOOD COUNT 4.61 x10^6/uL (3.50-5.40); RED CELL DISTRIBUTION WIDTH 14.1 % (11.5-14.5)
== END 2019-05-15 19:00 | disposition home or self-care (01) ==
LOC: ER 15:13
DX: M54.5 Low back pain (principal); R10.31 Right lower quadrant pain; J45.909 Unspecified asthma, uncomplicated; E11.9 Type 2 diabetes mellitus without complications; I10 Essential (primary) hypertension; Z88.1 Allergy status to other antibiotic agents
CPT/HCPCS: 36415; 74177; 80053; 81001; 81025; 83735; 85025; 86140; 87086; 96374; 96375; 99285; J1885; J3010; J7030; Q9967; 96361

== ENCOUNTER 2019-07-22 11:33 | Emergency (ER) | payer OTHER ==
[~2019-07-22] VITALS: Ht 167.6 cm; Wt 125.9 kg
[2019-07-22 12:40] VITALS: BP 128/90
[2019-07-22] MEDS ORDERED: OSEL75CA PO (13:51)
--- NOTE | 2019-07-22 13:52 | PHYS DOC ---
Past Medical History Past Medical History: Asthma, Diabetes-Type II, Hypertension Past Surgical History: Smoking Status: Never Smoker Alcohol Use: None Drug Use: None Adult General Chief Complaint Chief Complaint: COUGH HPI HPI Patient is a 34 year old [f__sex] who presents with [] Review of Systems Review of Systems Constitutional: Denies fever or chills [] Eyes: Denies change in visual acuity, redness, or eye pain [] HENT: Denies nasal congestion or sore throat [] Respiratory: Denies cough or shortness of breath [] Cardiovascular: No additional information not addressed in HPI [] GI: Denies abdominal pain, nausea, vomiting, bloody stools or diarrhea [] : Denies dysuria or hematuria [] Musculoskeletal: Denies back pain or joint pain [] Integument: Denies rash or skin lesions [] Neurologic: Denies headache, focal weakness or sensory changes [] Endocrine: Denies polyuria or polydipsia [] All other systems were reviewed and found to be within normal limits, except as documented in this note. Allergies Allergies Allergies Coded Allergies Type Severity Reaction Last Updated Verified vancomycin Allergy Unknown 12/10/17 Yes Physical Exam Physical Exam Constitutional: Well developed, well nourished, no acute distress, non-toxic appearance. [] HENT: Normocephalic, atraumatic, bilateral external ears normal, oropharynx moist, no oral exudates, nose normal. [] Eyes: PERRLA, EOMI, conjunctiva normal, no discharge. [] Neck: Normal range of motion, no tenderness, supple, no stridor. [] Cardiovascular:Heart rate regular rhythm, no murmur [] Lungs & Thorax: Bilateral breath sounds clear to auscultation [] Abdomen: Bowel sounds normal, soft, no tenderness, no masses, no pulsatile masses. [] Skin: Warm, dry, no erythema, no rash. [] Back: No tenderness, no CVA tenderness. [] Extremities: No tenderness, no cyanosis, no clubbing, ROM intact, no edema. [] Neurologic: Alert and oriented X 3, normal motor function, normal sensory function, no focal deficits noted. [] Psychologic: Affect normal, judgement normal, mood normal. [] Current Patient Data Vital Signs Vital Signs Date Time Temp Pulse Resp B/P (MAP) Pulse Ox O2 Delivery O2 Flow Rate FiO2 2/6/20 12:40 98.4 100 22 128/90 (103) 98 Room Air 98.4 EKG EKG [] Radiology/Procedures Radiology/Procedures [] Course & Med Decision Making Course & Med Decision Making Pertinent Labs and Imaging studies reviewed. (See chart for details) [] Dragon Disclaimer Dragon Disclaimer This electronic medical record was generated, in whole or in part, using a voice recognition dictation system. Departure Departure Impression: Primary Impression: Influenza-like symptoms Disposition: HOME, SELF-CARE Condition: STABLE Referrals: NICOLE CURRAN MD (PCP) Patient Instructions: Influenza, Adult, [id number] Additional Instructions: Fill the prescription and take as directed. Alternate Tylenol and ibuprofen as needed for fever. Increase clear fluids and rest. Diet as tolerated. Recommend use of cnzz-vir-mgcnonb flu medications as needed for relief of your symptoms. Follow up with your primary care doctor if symptoms persist, return to the ER symptoms worsen. Scripts Oseltamivir Phosphate (TAMIFLU) 75 Mg Capsule 1 CAP PO BID for 5 Days, #10 CAP 0 Refills Prov: LINH SAHU APRN 07/22/19 LINH SAHU APRN Jul 22, 2019 13:52
== END 2019-07-22 14:03 | disposition home or self-care (01) ==
LOC: ER 11:33
DX: R05 Cough (principal); J45.909 Unspecified asthma, uncomplicated; E11.9 Type 2 diabetes mellitus without complications; I10 Essential (primary) hypertension; Z88.1 Allergy status to other antibiotic agents
CPT/HCPCS: 99283

== ENCOUNTER → 2020-05-16 | Outpatient (CLI) | payer OTHER ==
[~2020-05-16] MED LIST changes: +OSEL75CA PO
--- NOTE | 2020-05-16 08:20 | RAD ---
INDICATION: Reason: RUQ pain radiating to RT mid back / Spl. Instructions: / History: COMPARISON: April 2019 TECHNIQUE: Grayscale and color ultrasound images obtained through the abdomen. FINDINGS: Aorta/IVC: Visualized portion unremarkable. Pancreas: Limited visualization secondary to overlying soft tissues obscuring. Mild heterogeneity. Liver: Echogenic and enlarged. Gallbladder: No definite stones or wall thickening. Common Bile Duct: Not dilated. Right Kidney: No hydronephrosis. IMPRESSION: * Liver is echogenic. Nonspecific but can be seen with fatty infiltration. * Mild heterogeneity pancreas. This could be artifactual in nature but would correlate with symptoms to ensure that this is not secondary to pancreatitis Electronically signed by: Ernesto Smyth MD (05/16/2020 8:17 AM) [id number]
== END ==
LOC: US 06:36
PROVIDERS: ATTEND Family Medicine
DX: R10.84 Generalized abdominal pain (principal)
CPT/HCPCS: 76705